=== PATIENT | female | born 1975 | race Hispanic/Latino ===

== ENCOUNTER 2024-05-21 09:27 | Observation (INO) | payer BC ==
[2024-05-19 10:39] VITALS: BP 124/66; PULSE 78; RESP 18; TEMP 98.2
[2024-05-19 11:04] LABS: CREATININE 0.9 mg/dL (0.5-1.0); POTASSIUM 3.9 mmol/L (3.5-5.1)
[2024-05-19 11:17] LABS: BASOPHILS # (AUTO) 0.09 K/uL (0.00-0.20); EOSINOPHILS % (AUTO) 9.1 % (0.0-8.0); HEMATOCRIT 41.8 % (36-48); IMMATURE GRANULOCYTE ABSOLUTE 0.02 K/uL (0-1); LYMPHOCYTES # (AUTO) 2.3 K/uL (1.0-4.8); LYMPHOCYTES % (AUTO) 26.4 % (21.0-51.0); MEAN CORPUSCULAR HEMOGLOBIN 27.3 pg (27.0-33.0); MEAN CORPUSCULAR HGB CONC 31.8 g/dL (32.0-36.0); MEAN CORPUSCULAR VOLUME 85.7 fL (79-99); MONOCYTES # (AUTO) 0.8 K/uL (0.1-1.0); MONOCYTES % (AUTO) 9.1 % (3.0-13.0); NEUTROPHILS # (AUTO) 4.8 K/uL (1.8-7.7); NEUTROPHILS % (AUTO) 54.2 % (40.0-77.0); PLATELET COUNT (AUTO) 280 K/uL (130-400); RED BLOOD CELL COUNT(AUTO) 4.88 MIL/uL (4.00-5.50); RED CELL DISTRIBUTION WIDTH 14.2 % (11.0-15.5); WHITE BLOOD COUNT (AUTO) 8.8 K/uL (4.8-10.8)
[2024-05-19 11:35] LABS: INR 1.01 (0.85-1.15); PROTHROMBIN TIME 10.9 SEC (9.6-11.6)
[2024-05-19 11:36] LABS: PARTIAL THROMBOPLASTIN TIME 29.1 SEC (26.3-35.5)
--- NOTE | 2024-05-19 13:59 | EKG ---
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
--- NOTE | 2024-05-19 15:38 | NUR ---
RE: LABS REPORTED BMP RESULTS TO DR MACEDO, NO NEW ORDERS RECEIVED.
[2024-05-21] VITALS (27 sets, daily range): BP systolic 121–168; BP diastolic 58–87; PULSE 67–108; RESP 11–22; TEMP 97.8–98.3; O2SAT 95
[~2024-05-21] VITALS: Ht 175.3 cm; Wt 106.6 kg
[~2024-05-21 09:27] MED LIST: ALBU18HF7 IH; ERGO500093 PO; MVIT PO; TIRZ7.5P SQ
[2024-05-21] MEDS: LACTATED RINGERS 1000ML 1,000 ML IV ONE (11:11)
[2024-05-21] MEDS: ceFAZolin SODIUM 2 GM VIAL ONE (11:12)
[2024-05-21] MEDS: metRONIDazole 500MG/100ML BAG 200 ML ONE (11:12)
[2024-05-21] MEDS ORDERED: rocuRONium bROMide 10MG/1ML 5ML VL ONE ×3 (13:14→15:28)
[2024-05-21] MEDS ORDERED: proPOFol 10 MG/ML 20ML VIAL IV ONE (13:14)
[2024-05-21] MEDS ORDERED: MIDAZOLAM HCL 1 MG/ML 2ML VIAL ONE (13:14)
[2024-05-21] MEDS ORDERED: LIDOCAINE PF 100MG/5ML (2%) SYRINGE 5ML ONE (13:14)
[2024-05-21] MEDS ORDERED: SUCCINYLCHOLINE CHLORIDE 20 MG/ML 10 ML VIAL ONE (13:14)
[2024-05-21] MEDS ORDERED: FENTanyl CITRate PF 50 MCG/1 ML 2ML VIAL ONE ×2 (13:15→14:57)
[2024-05-21] MEDS: BUPIvacaine/PF 0.25% 30ML VIAL IJ ONE (14:13)
[2024-05-21] MEDS: INDOCYANINE GREEN 25 MG VIAL IJ ONE (14:13)
[2024-05-21] MEDS ORDERED: dexaMETHasone SOD PHOSPHATE 4 MG/ML 1ML VIAL ONE (14:14)
[2024-05-21] MEDS ORDERED: dexaMETHasone SOD PHOSPHATE 10MG/ML 1ML VIAL ONE (14:14)
[2024-05-21] MEDS ORDERED: ondanSETRON 4MG INJ ONE (15:37)
[2024-05-21] MEDS ORDERED: hydroMORPHone 1 MG INJ IVP PRN (16:00)
[2024-05-21] MEDS: ondanSETRON 4MG INJ ONE (16:34)
[2024-05-21] MEDS: MEPERIDINE-PF 25 MG/ML SYG ONE ×2 (16:35)
[2024-05-21] MEDS: acetaMINOPHEN 100 ML IV ONE (16:36)
[2024-05-21] MEDS: ketOROlac 30MG VIAL (30MG/ML) ONE (16:55)
[2024-05-21] MEDS: hydroMORPHone 1 MG INJ ONE (16:56)
[2024-05-21] MEDS: LACTATED RINGERS 1000ML 1,000 ML IV SCH (17:45)
--- NOTE | 2024-05-21 17:50 | PN ---
GENERAL SURGERY PROGRESS NOTE Date/Time Patient Seen: [ 05/21/2024 5:45 p.m.] Problem List: [ ] Interval History: [Postop day 0. Pain tolerable with p.r.n. medication. ] Current Medications Medications (Trade) Dose Ordered Sig/Axel Route Start Time Stop Time Status Last Admin Dose Admin Enoxaparin Sodium (Lovenox) 40 mg Q12H SQ 05/21/24 16:00 06/20/24 15:59 Famotidine (Pepcid 20mg Vial) 20 mg BID IV 05/21/24 21:00 06/20/24 20:59 Lactated Ringer's 1,000 ml @ 150 mls/hr Q6H40M IV 05/21/24 16:00 06/20/24 15:59 Physical Examination: ABD: Incisions clean, dry and intact, Dermabond in place Vital Signs (last 8hr) Date Time Temp Pulse Resp B/P (MAP) Pulse Ox O2 Delivery O2 Flow Rate FiO2 05/21/24 17:30 93 17 126/74 97 Nasal Cannula 3.0 05/21/24 17:15 88 13 135/66 97 Nasal Cannula 3.0 05/21/24 17:10 89 13 126/66 97 Nasal Cannula 3.0 05/21/24 17:05 86 11 130/68 96 Nasal Cannula 3.0 05/21/24 17:00 88 11 131/65 96 Nasal Cannula 3.0 05/21/24 16:55 84 11 156/66 95 Nasal Cannula 3.0 05/21/24 16:50 90 18 156/72 96 Nasal Cannula 3.0 05/21/24 16:45 82 15 146/72 97 Nasal Cannula 3.0 05/21/24 16:40 86 20 145/84 97 Nasal Cannula 3.0 05/21/24 16:35 84 13 143/83 96 Nasal Cannula 3.0 05/21/24 16:30 86 13 143/77 96 Nasal Cannula 3.0 05/21/24 16:25 84 15 145/84 96 Nasal Cannula 3.0 05/21/24 16:20 83 17 148/87 96 Nonrebreathing Mask 10.0 98 05/21/24 16:15 82 14 149/74 95 Nonrebreathing Mask 10.0 98 05/21/24 16:10 86 18 168/78 95 Nonrebreathing Mask 10.0 98 05/21/24 16:05 98.1 85 22 159/75 98 Nonrebreathing Mask 10.0 98 05/21/24 09:55 98.2 91 18 121/86 98 Room Air Laboratory: [ ] Diagnostics / Radiology: [Copy/Paste Echos/Imaging Report here] Impression and Plan: [ Plan is for discharge home in the next day or 2. Discussed with patient and family, they understand and agree.] PASTORA PALACIOS MD May 21, 2024 17:50
--- NOTE | 2024-05-21 18:40 | OP ---
Operative Note: DATE OF PROCEDURE: 05/21/24 SURGEON: PASTORA PALACIOS MD GARMENT TURNER: Chalo Palacios MD PA-C ANESTHESIA: General and local ANESTHESIOLOGIST/SHAMPOO PERSON: [facility] [place] anesthesia team PREOPERATIVE DIAGNOSIS: Symptomatic hiatal hernia, symptomatic cholelithiasis POSTOPERATIVE DIAGNOSIS: As above SYNOPSIS: Hiatal hernia repair with mesh reinforcement and cholecystectomy with intraoperative cholangiogram performed without incident PROCEDURE: 1. Hiatal hernia repair with mesh reinforcement, robotic assisted 2. Cholecystectomy with intraoperative cholangiogram utilizing IC green and firefly visual technology 3. EGD ESTIMATED BLOOD LOSS: min, <30cc INDICATIONS: As above DESCRIPTION OF PROCEDURE: After standard precautions and preparations were undertaken a Veress needle and optical trocar were used to enter the abdominal cavity. All other instruments were placed under direct vision. The robotic system was docked in the standard fashion. We began our dissection by dividing pars flaccida identifying the right nolvia of the diaphragm. From there we were able to enter the mediastinum into a nearly avascular plane and circumferentially dissect through this plane to mobilize the distal esophagus. We freed up the attachments to the right and left crura down to the crossing fibers in the retroesophageal space. Performed a hiatal hernia repair by suturing the right and left crura back into reapproximation. Care was taken not to over tighten. When this was completed we utilized a two sided slowly absorbable mesh product to reinforced the closure. It was cut in a horseshoe fashion and placed as an overlay in the retroesophageal space. It was sutured in place to prevent mesh migration and to maximize tissue contact with the mesh. We then turned our attention to the cholecystectomy portion of the case. We had given IC-Green prior to the case and utilized the firefly visual technology to be able to examined the ductal system. We retracted the fundus of the gallbladder cephalad and began dissecting around the infundibulum. We were able to identify two structures one that was clearly ductal thanks to the intraoperative use of IC-Green and the other that was clearly avascular. With the structures were isolated and the critical view of safety achieved we are able to clip and divide the structures leaving two clips on the stay side of both structures. The attachments between the gallbladder and gallbladder fossa were divided using monopolar cautery. The gallbladder was placed in an Endo- Catch bag and removed from the abdominal cavity. At the end of the case my partner who had been utilizing the EGD scope throughout performed one final look with the EGD scope to ensure that the hiatal hernia repair was not overly tightened. A retroflex view demonstrated the hernia was closed and that the anatomy was appropriate. There was no sign of injury to the distal esophagus or proximal stomach. The scope was removed without incident. All instrument counts were verified as correct including needles and sponges prior to ending the case. PASTORA PALACIOS MD May 21, 2024 18:40
[2024-05-21] MEDS: ENOXAPARIN SODIUM 40 MG/0.4 ML SYRINGE SQ SCH (19:21)
[2024-05-21] MEDS: FAMOTIDINE 20MG VIAL IV SCH (20:21)
[2024-05-21] MEDS: HYDROcod/acetaMINOPHEN 7.5/325 MG 15 ML UDCUP PO PRN (20:28)
[2024-05-21] MEDS: ketOROlac 30MG VIAL (30MG/ML) IV PRN (23:41)
[2024-05-22] VITALS: BP 145/89; PULSE 102; RESP 18; TEMP 98
[2024-05-22 04:00] VITALS: BP 148/93; PULSE 102; RESP 19; TEMP 98.3
[2024-05-22] MEDS: ondanSETRON 4MG INJ IVP PRN (04:01)
[2024-05-22] MEDS: PROCHLORPERAZINE 10MG/2ML INJ IV PRN (04:57)
[2024-05-22 06:26] VITALS: PULSE 67; RESP 18; O2SAT 93
[2024-05-22 08:00] VITALS: O2SAT 98
[2024-05-22 08:20] VITALS: BP 144/87; PULSE 95; RESP 16; TEMP 97.6
--- NOTE | 2024-05-22 09:39 | PN ---
GENERAL SURGERY PROGRESS NOTE Date/Time Patient Seen: [May 22, 2024 at 9:15 a.m. ] Problem List: [Cholelithiasis Diaphragmatic hernia ] Interval History: [The patient is a pleasant 48-year-old female status post hiatal hernia repair with mesh and gastropexy, and cholecystectomy with intraoperative cholangiogram done by Dr. Manuel Zuluaga. The patient is progressing well. The patient is awake alert and oriented x3 and resting comfortably in bed. The patient is not in acute distress. The patient is tolerating a clear liquid diet well without any upper or lower GI symptoms. Patient reports some bloating. The patient sta thang she has not passed gas but has been burping. The patient is voiding freely. The patient reports pain to incisions and right upper quadrant. Otherwise vital signs are stable. The patient is overall happy with the procedure and is interested in going home today.] Current Medications Medications (Trade) Dose Ordered Sig/Axel Route Start Time Stop Time Status Last Admin Dose Admin Enoxaparin Sodium (Lovenox) 40 mg Q12H SQ 05/21/24 16:00 06/20/24 15:59 05/21/24 19:21 40 MG Famotidine (Pepcid 20mg Vial) 20 mg BID IV 05/21/24 21:00 06/20/24 20:59 05/21/24 20:21 20 MG Lactated Ringer's 1,000 ml @ 150 mls/hr Q6H40M IV 05/21/24 16:00 06/20/24 15:59 05/22/24 04:58 150 MLS/HR Physical Examination: GENERAL: [No acute distress.] HEAD: [Normal with no signs of head trauma.] EYES: [PERRLA, EOMI, conjunctiva and sclera normal.] ENT: [Hearing grossly intact, normal oropharynx.] NECK: [Supple without JVD. There is no tenderness, lymphadenopathy, or masses. No thyromegaly. Normal carotid upstrokes without bruits.] LUNGS: [Clear breath sounds bilaterally. There are right basilar rales one third of the way up the chest. No wheezes, or rhonchi.] HEART: [Normal rate and rhythm. Normal S1 and S2 without mumurs, gallop or rub.] VASC: [Peripheral pulses +2 bilaterally.] ABD: [Bowel sounds normal, soft, nontender, no masses, no organomegaly. No audible bruits. Abdominal incisions clean and dry. No signs of infection.] : [Not examined] LYMPH: [No lymphadenopathy noted.] EXT: [No clubbing, cyanosis or edema.] SKIN: [No rashes or lesions noted.] NEURO: [Awake, alert, and oriented x3. No focal sensory or strength deficits noted.] Vital Signs (last 8hr) Date Time Temp Pulse Resp B/P (MAP) Pulse Ox O2 Delivery O2 Flow Rate FiO2 05/22/24 08:20 97.5 95 16 144/87 98 Room Air 05/22/24 06:26 67 18 N/Cannula Low lpm 21 05/22/24 04:00 98.2 102 19 148/93 98 Nasal Cannula 1.0 Laboratory: [ ] Impression and Plan: [ Postoperative day one. The patient is progressing well. We will continue to monitor and treat pain as needed. GI/DVT prophylaxis recommended and encouraged. The patient is tolerating a clear liquid diet well and will advance to full liquid diet upon discharge. Patient may restart home medications. Incision care, hydration, activity and dietary restrictions discussed with the patient. The patient understands and agrees. We will order an abdominal binder, Toradol, and simethicone for pain and symptomatic relief. The plan is to discharge the patient home today. Postoperative follow up in home medications sent by office staff. ] MARSHA ESCOBAR May 22, 2024 09:39
[2024-05-22] MEDS: SIMETHICONE 80 MG TAB.CHEW PO PRN (10:19)
[2024-05-22 11:10] VITALS: BP 133/76; PULSE 90; RESP 16; TEMP 98.6
== END 2024-05-22 14:05 | disposition home or self-care (01) ==
LOC: DAH 09:27 → INTOOBSV 09:28 → DAH 09:28 → DAHIP 09:28 → 4CH 17:36
PROVIDERS: ADMIT Surgery; ATTEND Surgery
DX: K80.10 Calculus of gallbladder with chronic cholecystitis without obstruction (principal); K44.9 Diaphragmatic hernia without obstruction or gangrene; K21.9 Gastro-esophageal reflux disease without esophagitis; K76.0 Fatty (change of) liver, not elsewhere classified; J45.909 Unspecified asthma, uncomplicated; E78.00 Pure hypercholesterolemia, unspecified; G47.33 Obstructive sleep apnea (adult) (pediatric); Z79.899 Other long term (current) drug therapy
CPT/HCPCS: 80048; 84703; 85025; 85610; 85730; 86850; 86900; 86901; 36415; 93005; 43282; 47563; 96374; 96372; 96375 ×2; 88304; 74300; 94760; 96376; 97161; 97116; A6260; A4663; A4215 ×2; J7120; J3490 ×6; J3010 ×2; J1171; J1100 ×2; J0330; J0665; J2003; J2250; J2704; J2405 ×3; J1885 ×2; J1650; J2175 ×2; J0690; C1781; A4930; A4223 ×2; A4222; A4221; A4216; A4600; A4606; G0378 ×6; J0780; 43235; G8980-CI; G8983-CI